=== PATIENT | female | born 1985 | race African-American/Black ===

== ENCOUNTER 2019-02-28 21:26 | Emergency (ER) | payer OTHER ==
[2019-02-28 21:36] VITALS: BP 112/57
[2019-02-28] MEDS ORDERED: MELOXICAM 7.5 MG TABLET PO STA (21:41)
--- NOTE | 2019-02-28 21:44 | ED Physician Documentation ---
PD HPI UPPER EXT INJURY - Stated complaint Stated Complaint: RIGHT WRIST PX - Chief complaint Chief Complaint: Ext Problem - History obtained from History obtained from: Patient - History of Present Illness Location: Right (Without specific injury this left-handed woman developed right wrist pain on the radial side radiating up towards the elbow that is worse with certain motions over the last month.) Review of Systems Constitutional: reports: Reviewed and negative Cardiac: reports: Reviewed and negative Respiratory: reports: Reviewed and negative PD PAST MEDICAL HISTORY - Past Medical History Past Medical History: Yes Cardiovascular: None Respiratory: Asthma Neuro: None Endocrine/Autoimmune: None GI: None REFRIGERATION INSULATOR: None : None HEENT: None Psych: Anxiety, Bipolar disorder Musculoskeletal: None Derm: None - Past Surgical History Past Surgical History: Yes General: Appendectomy /REFRIGERATION INSULATOR: section - Present Medications Home Medications: Ambulatory Orders Medication Instructions Recorded Confirmed Meloxicam [Mobic] 7.5 mg PO BID PRN #20 tablet 02/28/19 - Allergies Allergies/Adverse Reactions: Allergies Allergy/AdvReac Type Severity Reaction Status Date / Time aspirin AdvReac Edema Verified 02/28/19 21:39 ciprofloxacin [From Cipro] AdvReac Rash Verified 02/28/19 21:40 iodine AdvReac Rash Verified 02/28/19 21:39 Sulfa (Sulfonamide AdvReac Rash Verified 02/28/19 21:39 Antibiotics) vancomycin AdvReac Itching Verified 02/28/19 21:40 - Social History Does the pt smoke?: No Smoking Status: Never smoker Does the pt drink ETOH?: No Does the pt have substance abuse?: No - Immunizations Immunizations are current?: Yes - POLST Patient has POLST: No PD ED PE NORMAL - Vitals Vital signs reviewed: Yes - General General: Alert and oriented X 3, No acute distress - Extremities Extremities: Other (The right wrist itself is nontender, the elbow is as well. Flexion extension is relatively painless but has very positive de Quervain's testing.) - Neuro Neuro: Alert and oriented X 3, Normal speech Results - Vitals Vitals: Vital Signs - 24 hr 02/28/19 21:34 Temperature 36.9 C Heart Rate 70 Respiratory 16 Rate Blood Pressure 112/57 L O2 Saturation 100 Oxygen O2 Source Room air PD MEDICAL DECISION MAKING - ED course ED course: This is a 33-year-old woman with de Quervain's tenosynovitis. She is placed in a Velcro thumb spica splint and given a referral for physical therapy and anti- inflammatories. Departure - Departure Disposition: 01 Home, Self Care Clinical Impression: Radial styloid tenosynovitis [de quervain] Condition: Good Record reviewed to determine appropriate education?: Yes Instructions: De Quervain Tenosynovitis Prescriptions: Meloxicam [Mobic] 7.5 mg PO BID PRN #20 tablet PRN Reason: Pain Comments: [place] return for new or worsening symptoms. Also physical therapy as discussed I have written an order for physical therapy 3 times a week for 6 weeks for de Quervain's Tenosynovitis. Forms: Activity restrictions
== END 2019-02-28 22:04 | disposition home or self-care (01) ==
LOC: ED 21:26
DX: M65.4 Radial styloid tenosynovitis [de Quervain] (principal)
CPT/HCPCS: 99282; 99283; A9270

== ENCOUNTER 2019-11-09 07:38 | Outpatient (CLI) | payer OTHER | END 2019-11-09 07:39 | disposition critical access hospital (66) | LOC: EMS 07:38 | PROVIDERS: ATTEND Surgery | DX: R07.9 Chest pain, unspecified (principal) | CPT/HCPCS: A0425; A0429 ==

== ENCOUNTER 2019-11-09 07:57 | Emergency (ER) | payer OTHER ==
[2019-11-09] MEDS ORDERED: LIDOCAINE VISCOUS 2% 15 ML UDC MM STA (08:08)
[2019-11-09] MEDS ORDERED: MAG HYDROX/AL HYDROX/SIMETH 30 ML UDC PO STA (08:08)
--- NOTE | 2019-11-09 08:09 | ED Physician Documentation ---
PD HPI CHEST PAIN - Stated complaint Stated Complaint: CP - Chief complaint Chief Complaint: Cardiac - History obtained from History obtained from: Patient, EMS - History of Present Illness Timing - onset: Today - Additional information Additional information: 34-year-old otherwise healthy woman presents with chest pain that started at 5 AM. It is a sharp pain that actually started almost up near the thyroid and then radiated up and down into the substernal area. It is a severe pain. She is never had it before. Try changing positions and pressing on her chest without relief. She has no history of heart problems. Her father did have a heart attack in his mid 30s. She denies shortness of breath or nausea. No sweats. No radiation to the back. She is on Nexplanon for control. Review of Systems Ten Systems: 10 systems reviewed and negative Constitutional: denies: Fever, Chills Nose: denies: Rhinorrhea / runny nose Throat: denies: Sore throat Cardiac: reports: Chest pain / pressure. denies: Palpitations, Pedal edema, Calf pain PD PAST MEDICAL HISTORY - Past Medical History Cardiovascular: None Respiratory: Asthma Neuro: None Endocrine/Autoimmune: None GI: None CONTINUOUS IMPROVEMENT MANAGER: None : None HEENT: None Psych: Anxiety, Bipolar disorder Musculoskeletal: None Derm: None - Past Surgical History Past Surgical History: Yes General: Appendectomy /CONTINUOUS IMPROVEMENT MANAGER: section - Present Medications Home Medications: Ambulatory Orders Medication Instructions Recorded Confirmed Fluoxetine HCl 30 mg ORAL DAILY PM 11/09/19 11/09/19 Hydrocodone/Acetaminophen 1 - 2 each PO Q6H PRN #7 tablet 11/09/19 [Hydrocodon-Acetaminophen 5-325] Iloperidone [Fanapt] 2 mg ORAL DAILY PM 11/09/19 11/09/19 Propranolol [Inderal] 10 mg PO DAILY PM 11/09/19 11/09/19 Trazodone HCl 50 mg PO QPM #30 tablet 11/09/19 lamoTRIgine [Lamictal] 150 mg PO DAILY PM 11/09/19 11/09/19 - Allergies Allergies/Adverse Reactions: Allergies Allergy/AdvReac Type Severity Reaction Status Date / Time aspirin AdvReac Edema Verified 11/09/19 08:01 ciprofloxacin [From Cipro] AdvReac Rash Verified 11/09/19 08:01 iodine AdvReac Rash Verified 11/09/19 08:01 Sulfa (Sulfonamide AdvReac Rash Verified 11/09/19 08:01 Antibiotics) vancomycin AdvReac Itching Verified 11/09/19 08:01 - Social History Does the pt smoke?: No Smoking Status: Never smoker Does the pt drink ETOH?: No Does the pt have substance abuse?: No - Family History Family history: reports: Non contributory - Immunizations Immunizations are current?: Yes - POLST Patient has POLST: No PD ED PE NORMAL - Vitals Vital signs reviewed: Yes - General General: Alert and oriented X 3, No acute distress - HEENT HEENT: PERRL, EOMI - Neck Neck: Supple, no meningeal sign, No bony TTP - Cardiac Cardiac: RRR, No murmur - Respiratory Respiratory: No respiratory distress, Clear bilaterally - Abdomen Abdomen: Non tender - Back Back: No CVA TTP, No spinal TTP - Derm Derm: Normal color, Warm and dry - Extremities Extremities: No edema, No calf tenderness / cord - Neuro Neuro: Alert and oriented X 3, Normal speech Results - Vitals Vitals: Vital Signs - 24 hr 11/09/19 11/09/19 11/09/19 08:02 08:20 08:49 Temperature 36.6 C Heart Rate 72 73 68 Respiratory 18 22 14 Rate Blood Pressure 114/63 127/79 119/66 O2 Saturation 99 96 96 11/09/19 09:18 Temperature Heart Rate 68 Respiratory 16 Rate Blood Pressure 108/62 O2 Saturation 97 Oxygen O2 Source Room air - EKG (time done) 0801 Rate: Rate (enter#) (74) Rhythm: NSR [place]: Normal Intervals: Normal [place] QRS: Normal Ischemia: Normal ST segments Computer interpretation: Agree with computer - Labs Labs: Laboratory Tests 11/09/19 11/09/19 11/09/19 08:10 08:10 08:10 WBC 7.1 RBC 4.94 Hgb 13.2 Hct 41.0 MCV 83.0 MCH 26.7 L MCHC 32.2 RDW 13.3 Plt Count 304 MPV 9.9 Neut # (Auto) 4.8 Lymph # (Auto) 1.6 [place] # (Auto) 0.5 Eos # (Auto) 0.1 Baso # (Auto) 0.0 Absolute Nucleated RBC 0.00 Nucleated RBC % 0.0 D-Dimer Sodium 138 Potassium 3.9 Chloride 103 Carbon Dioxide 24 Anion Gap 11.0 BUN 15 Creatinine 1.1 H Estimated GFR (MDRD) 69 L Glucose 93 Calcium 8.9 Total Bilirubin 0.5 AST 12 ALT 10 Alkaline Phosphatase 63 Troponin I High Sens < 2.3 L Total Protein 7.3 Albumin 4.3 Globulin 3.0 Albumin/Globulin Ratio 1.4 Lipase 63 H 11/09/19 08:10 WBC RBC Hgb Hct MCV MCH MCHC RDW Plt Count MPV Neut # (Auto) Lymph # (Auto) [place] # (Auto) Eos # (Auto) Baso # (Auto) Absolute Nucleated RBC Nucleated RBC % D-Dimer < 200.0 L Sodium Potassium Chloride Carbon Dioxide Anion Gap BUN Creatinine Estimated GFR (MDRD) Glucose Calcium Total Bilirubin AST ALT Alkaline Phosphatase Troponin I High Sens Total Protein Albumin Globulin Albumin/Globulin Ratio Lipase PD MEDICAL DECISION MAKING - ED course ED course: 34 yo woman with v atypical Chest pain, the description sounds like a GI issue. Heart score 1 (FHx) Feeling much better after pain medications. She discussed her sleep patterns with me, takes about an hour and a half to go to sleep every night, and then several awakenings, usually 3 or 4 in the morning before her alarm goes off. She tried guanfacine for it which was not helpful and gave her headaches. We will trial some trazodone pending follow-up with her psychiatric nurse pr actitioner. Departure - Departure Disposition: 01 Home, Self Care Clinical Impression: Chest pain Qualifiers: Chest pain type: precordial pain Qualified Code(s): R07.2 - Precordial pain Condition: Good Record reviewed to determine appropriate education?: Yes Instructions: ED Chest Pain NonCardiac Prescriptions: Hydrocodone/Acetaminophen [Hydrocodon-Acetaminophen 5-325] 1 - 2 each PO Q6H PRN #7 tablet PRN Reason: pain Trazodone HCl 50 mg PO QPM #30 tablet Comments: As discussed, the cause of your chest pain today is not quite clear, but given your description most likely a gastrointestinal source. Return for new or worsening symptoms. For the sleep we are going to try some trazodone, follow-up with Isabel at in 2 weeks as scheduled and discuss if it is working for refills all or alternatives or dose changes.
[2019-11-09] MEDS ORDERED: HYDROmorphone 1 MG/ML CARPUJECT IVP STA ×2 (08:25→08:52)
[2019-11-09 08:31] LABS: ALBUMIN 4.3 g/dL (3.2-5.5); ALBUMIN/GLOBULIN RATIO 1.4 (1.0-2.2); BILIRUBIN,TOTAL 0.5 mg/dL (0.2-1.0); CALCIUM 8.9 mg/dL (8.5-10.3); CREATININE 1.1 mg/dL (0.4-1.0); TOTAL PROTEIN 7.3 g/dL (6.7-8.2)
--- NOTE | 2019-11-09 08:46 | XRAY Report ---
PROCEDURE: Chest 1 View X-Ray INDICATIONS: chest pain TECHNIQUE: One view of the chest was acquired. COMPARISON: None FINDINGS: Surgical changes and devices: None. Lungs and pleura: No pleural effusions or pneumothorax. Lungs are clear. Mediastinum: Mediastinal contours appear normal. Heart size is normal. Bones and chest wall: No suspicious bony lesions. Overlying soft tissues appear unremarkable. IMPRESSION: No acute cardiopulmonary pathology. Reviewed by: Shay Menchaca MD on 11/09/2019 8:44 AM PDT Approved by: Shay Menchaca MD on 11/09/2019 8:44 AM PDT Station ID: [id number]
[2019-11-09 09:06] LABS: BASOPHILS % (AUTO) 0.6 %; EOSINOPHILS # (AUTO) 0.1 10^3/uL (0.0-0.7); EOSINOPHILS % (AUTO) 1.8 %; HGB - HEMOGLOBIN 13.2 g/dL (12.0-16.0); LYMPHOCYTES # (AUTO) 1.6 10^3/uL (1.5-3.5); LYMPHOCYTES % (AUTO) 22.4 %; MEAN CORPUSCULAR HEMOGLOBIN 26.7 pg (27.0-31.0); MEAN CORPUSCULAR HGB CONC 32.2 g/dL (32.0-36.0); MEAN PLATELET VOLUME 9.9 fL (7.9-10.8); MONOCYTES # (AUTO) 0.5 10^3/uL (0.0-1.0); MONOCYTES % (AUTO) 6.8 %; NEUTROPHILS # (AUTO) 4.8 10^3/uL (1.5-6.6); PLT - PLATELET COUNT 304 10^3/uL (130-450); RED BLOOD COUNT 4.94 10^6/uL (4.20-5.40); RED CELL DISTRIBUTION WIDTH 13.3 % (12.0-15.0); WHITE BLOOD COUNT 7.1 x10^3/uL (4.8-10.8)
[2019-11-09 10:02] VITALS: BP 114/56
== END 2019-11-09 10:15 | disposition home or self-care (01) ==
LOC: EDUNIT# → ED 07:57
DX: R07.2 Precordial pain (principal); Z82.49 Family history of ischemic heart disease and other diseases of the circulatory system; G47.9 Sleep disorder, unspecified
CPT/HCPCS: 36415; 71045; 80053; 83690; 84484; 85025; 85379; 93005; 96374; 99284; A9270; J1170

== ENCOUNTER 2020-02-13 10:40 | Outpatient (CLI) | payer OTHER ==
--- NOTE | 2020-02-13 11:35 | MRI Report ---
PROCEDURE: Brain W/O INDICATIONS: CHRONIC MIGRAINES TECHNIQUE: Noncontrast axial T1 spin echo, axial T2 fast spin echo, sagittal and axial FLAIR, coronal T2 fast sp in echo, axial gradient echo, axial diffusion and ADC through the brain. COMPARISON: None. FINDINGS: Image quality: Excellent. CSF Spaces: Basal cisterns are patent. No extra-axial fluid collections. Ventricles are normal in size and shape. Brain: No intracranial masses or hemorrhage. Gonzalez/white matter interface is normal. Brainstem appe ars normal. Diffusion-weighted images demonstrate no recent ischemia. The major intravascular flow-r elated signal voids are present. Midline structures normal in configuration. Skull and face: Calvarium has normal marrow signal. Orbits appear normal. Sinuses: Sinuses and mastoids are clear. IMPRESSION: Normal MRI of the brain. Reviewed by: Suresh Hardwick MD on 02/13/2020 11:33 AM PDT Approved by: Suresh Hardwick MD on 02/13/2020 11:33 AM PDT Station ID: [id number]
== END 2020-02-13 10:41 | disposition home or self-care (01) ==
LOC: DI 10:40
PROVIDERS: ATTEND Family Medicine
DX: G43.909 Migraine, unspecified, not intractable, without status migrainosus (principal); H57.10 Ocular pain, unspecified eye; H53.8 Other visual disturbances
CPT/HCPCS: 70551

== ENCOUNTER 2021-01-04 14:21 | Emergency (ER) | payer OTHER ==
[2021-01-04 14:31] VITALS: BP 110/74
[2021-01-04] MEDS ORDERED: KETOROLAC 60 MG/2 ML VIAL IM STA (15:02)
[2021-01-04] MEDS ORDERED: CHERRY SYRUP 10 ML UDC PO ONE (15:02)
[2021-01-04] MEDS ORDERED: DEXAMETHASONE 10 MG/ML VIAL PO STA (15:02)
--- NOTE | 2021-01-04 15:04 | ED Physician Documentation ---
PD HPI BACK PAIN - Stated complaint Stated Complaint: BACK PX - Chief complaint Chief Complaint: Back Pain - History obtained from History obtained from: Patient - History of Present Illness Timing - onset: Today Timing - duration: Hours Timing - details: Abrupt onset, Still present Location: Lower Quality: Pain, Spasm, Sharp Associated symptoms: No: Fever, Weakness, Numbness, Incontinent of urine, Unable to urinate, Hematuria, Incontinent of stool Improves with: Rest Worsened by: Movement Contributing factors: Lifting, Twisting Similar symptoms before: Has not had sx before Recently seen: Not recently seen - Additional information Additional information: 35-year-old female who has small children that [place]. The children have developed Covid and the patient is in her home cleaning incessantly and continuously. She and her are immunized and they have not turned positive.This morning the patient awoke with severe pain to her low back with radiation down both legs posteriorly. She denies any numbness or tingling she denies any difficulty with her bowel or bladder. Review of Systems Constitutional: denies: Fever Ears: denies: Ear pain Nose: denies: Congestion Cardiac: denies: Chest pain / pressure Respiratory: denies: Cough GI: denies: Abdominal Pain, Nausea, Vomiting, Diarrhea : denies: Dysuria, Frequency Skin: denies: Rash Musculoskeletal: reports: Back pain. denies: Neck pain, Extremity pain PD PAST MEDICAL HISTORY - Past Medical History Cardiovascular: None Respiratory: Asthma Neuro: None Endocrine/Autoimmune: None GI: None MUNICIPAL SERVICES MANAGER: None : None HEENT: None Psych: Anxiety, Bipolar disorder Musculoskeletal: None Derm: None - Past Surgical History Past Surgical History: Yes General: Appendectomy /MUNICIPAL SERVICES MANAGER: section - Present Medications Home Medications: Ambulatory Orders Medication Instructions Recorded Confirmed Fluoxetine HCl 30 mg ORAL DAILY PM 11/09/19 11/09/19 Hydrocodone/Acetaminophen 1 - 2 each PO Q6H PRN #7 tablet 11/09/19 [Hydrocodon-Acetaminophen 5-325] Iloperidone [Fanapt] 2 mg ORAL DAILY PM 11/09/19 11/09/19 Propranolol [Inderal] 10 mg PO DAILY PM 11/09/19 11/09/19 Trazodone HCl 50 mg PO QPM #30 tablet 11/09/19 lamoTRIgine [Lamictal] 150 mg PO DAILY PM 11/09/19 11/09/19 Cyclobenzaprine [Flexeril] 10 mg PO TID PRN #20 tablet 01/04/21 HYDROcod/ACETAM 5/325 [[place] 5/325] 1 - 2 tablet PO Q6H PRN #14 tablet 01/04/21 - Allergies Allergies/Adverse Reactions: Allergies Allergy/AdvReac Type Severity Reaction Status Date / Time aspirin AdvReac Edema Verified 01/04/21 14:28 ciprofloxacin [From Cipro] AdvReac Rash Verified 01/04/21 14:28 iodine AdvReac Rash Verified 01/04/21 14:28 Sulfa (Sulfonamide AdvReac Rash Verified 01/04/21 14:28 Antibiotics) vancomycin AdvReac Itching Verified 01/04/21 14:28 - Social History Does the pt smoke?: No Smoking Status: Never smoker Does the pt drink ETOH?: No Does the pt have substance abuse?: No - Immunizations Immunizations are current?: Yes - POLST Patient has POLST: No PD ED PE NORMAL - Vitals Vital signs reviewed: Yes (Normal) - General General: Alert and oriented X 3, Well developed/nourished, Other (The patient moves slowly and when she does move she has sudden twinges of pain.) - Neck Neck: Supple, no meningeal sign, No bony TTP - Respiratory Respiratory: No respiratory distress - Back Back: No CVA TTP, No spinal TTP, Other (There is mild point tenderness to the paraspinous muscles of the lower lumbar spine at the lumbar sacral junction.) - Derm Derm: Normal color, Warm and dry, No rash - Extremities Extremities: No deformity, No edema - Neuro Neuro: Alert and oriented X 3, band tumbler 2-12 intact, No motor deficit, No sensory deficit, Normal speech Eye Opening: Spontaneous Motor: Obeys Commands Verbal: Oriented GCS Score: 15 - Psych Psych: Normal mood, Normal affect Results - Vitals Vitals: Vital Signs - 24 hr 01/04/21 14:28 Temperature 36.5 C Heart Rate 66 Respiratory 16 Rate Blood Pressure 110/74 O2 Saturation 100 Oxygen O2 Source Room air PD MEDICAL DECISION MAKING - ED course Complexity details: reviewed old records, considered differential, d/w patient ED course: 35-year-old female with acute lumbar spasm from overuse is administered dexamethasone 10 mg and Toradol 60 mg IM. We will place her on a course of pain medication a muscle relaxant and have her hydrate. Departure - Departure Disposition: 01 Home, Self Care Clinical Impression: Lumbar paraspinal muscle spasm Condition: Stable Instructions: ED Spasm Back No Trauma Follow-Up: RENATA LEZAMA MD [Primary Care Provider] - Prescriptions: Cyclobenzaprine [Flexeril] 10 mg PO TID PRN #20 tablet PRN Reason: Spasms HYDROcod/ACETAM 5/325 [[place] 5/325] 1 - 2 tablet PO Q6H PRN #14 tablet PRN Reason: Pain Comments: Irena, today it looks like your back pain is related to spasm from excessive use of your back muscles without rest. The recommendation is to ice and stretch her back hydrate as much as you possibly can take the pain medication a muscle relaxant as needed and expect your pain to resolve in 2 to 5 days.
== END 2021-01-04 15:35 | disposition home or self-care (01) ==
LOC: ED 14:21
DX: M62.830 Muscle spasm of back (principal); F41.9 Anxiety disorder, unspecified; F31.9 Bipolar disorder, unspecified; Z79.899 Other long term (current) drug therapy
CPT/HCPCS: 96372; 99283; 99284; A9270

== ENCOUNTER 2022-05-11 13:15 | Outpatient (CLI) | payer OTHER ==
--- NOTE | 2022-05-11 14:09 | XRAY Report ---
PROCEDURE: Hand 3 View LT INDICATIONS: L HAND PX TECHNIQUE: 3 views of the hand(s) acquired. COMPARISON: None FINDINGS: Bones: No fractures or dislocations. No suspicious bony lesions. Soft tissues: No suspicious soft tissue calcifications. IMPRESSION: No acute fracture. No osseous lesion. If symptoms and/or clinical suspicion for pathology continue, f urther assessment with repeat plain films, or advanced imaging (e.g., CT, MRI, or bone scan) is recom mended for further assessment. Reviewed by: Michael Slade MD on 05/11/2022 2:07 PM PST Approved by: Michael Slade MD on 05/11/2022 2:07 PM PST Station ID: [id number]
== END 2022-05-11 13:16 | disposition home or self-care (01) ==
LOC: DI.N 13:15
PROVIDERS: ATTEND Registered Nurse
DX: M25.542 Pain in joints of left hand (principal); R30.0 Dysuria
CPT/HCPCS: 87086

== ENCOUNTER 2022-07-18 10:03 | Emergency (ER) | payer OTHER ==
[2022-07-18 10:15] VITALS: BP 135/73
--- NOTE | 2022-07-18 10:28 | ED Physician Documentation ---
PD HPI UPPER EXT INJURY - Stated complaint Stated Complaint: LFT RING FINGER INJURY - Chief complaint Chief Complaint: Trauma Ext - History obtained from History obtained from: Patient - Additonal information Additional information: Patient is a 37-year-old presenting for evaluation of left ring finger pain that started this morning while playing basketball. She reports jamming her finger And started to have pain Which is worse with movements. Reports having an injury to the finger back in April. Denies any prior surgeries to the hand or fingers. Review of Systems Constitutional: denies: Fever Cardiac: denies: Chest pain / pressure Respiratory: denies: Dyspnea GI: denies: Abdominal Pain Musculoskeletal: reports: Extremity pain PD PAST MEDICAL HISTORY - Past Medical History Cardiovascular: None Respiratory: Asthma Neuro: None Endocrine/Autoimmune: None GI: None AIRPORT OPERATIONS CREW MEMBER: None : None HEENT: None Psych: Anxiety, Bipolar disorder Musculoskeletal: None Derm: None - Past Surgical History Past Surgical History: Yes General: Appendectomy /AIRPORT OPERATIONS CREW MEMBER: section - Present Medications Home Medications: Ambulatory Orders Medication Instructions Recorded Confirmed Fluoxetine HCl 30 mg ORAL DAILY PM 11/09/19 11/09/19 Hydrocodone/Acetaminophen 1 - 2 each PO Q6H PRN #7 tablet 11/09/19 [Hydrocodon-Acetaminophen 5-325] Iloperidone [Fanapt] 2 mg ORAL DAILY PM 11/09/19 11/09/19 Propranolol [Inderal] 10 mg PO DAILY PM 11/09/19 11/09/19 Trazodone HCl 50 mg PO QPM #30 tablet 11/09/19 lamoTRIgine [Lamictal] 150 mg PO DAILY PM 11/09/19 11/09/19 Cyclobenzaprine [Flexeril] 10 mg PO TID PRN #20 tablet 01/04/21 HYDROcod/ACETAM 5/325 [[place] 5/325] 1 - 2 tablet PO Q6H PRN #14 tablet 01/04/21 - Allergies Allergies/Adverse Reactions: Allergies Allergy/AdvReac Type Severity Reaction Status Date / Time naproxen Allergy Rash Verified 07/18/22 10:15 aspirin AdvReac Edema Verified 01/04/21 14:28 ciprofloxacin [From Cipro] AdvReac Rash Verified 01/04/21 14:28 iodine AdvReac Rash Verified 01/04/21 14:28 Sulfa (Sulfonamide AdvReac Rash Verified 01/04/21 14:28 Antibiotics) vancomycin AdvReac Itching Verified 01/04/21 14:28 - Social History Does the pt smoke?: No Smoking Status: Never smoker Does the pt drink ETOH?: No Does the pt have substance abuse?: No - Immunizations Immunizations are current?: Yes - POLST Patient has POLST: No PD ED PE NORMAL - General General: Alert and oriented X 3, No acute distress, Well developed/nourished - HEENT HEENT: Atraumatic - Cardiac Cardiac: Strong equal pulses - Respiratory Respiratory: No respiratory distress - Derm Derm: Warm and dry - Extremities Extremities: Other (Tenderness and mild swelling to left fourth finger, normal range of motion at all joints, finger appears to be aligned properly, brisk cap refill, sensation intact; No tenderness elsewhere in the hand or to other digits) Results - Vitals Vitals: Vital Signs - 24 hr 07/18/22 10:12 Temperature 36.2 C L Heart Rate 73 Respiratory 20 Rate Blood Pressure 135/73 H O2 Saturation 100 Oxygen O2 Source Room air PD Medical Decision Making - ED course Complexity details: reviewed results, re-evaluated patient ED course: Patient presenting for evaluation of injury to left ring finger.Normal range of motion with no signs of tendon injury.Neurovascularly intact. X-ray was obtained which I reviewed and is negative for Fracture or dislocation. Patient This into a finger splint and advised on continued Supportive care as well as need for follow-up if symptoms or not improving. Departure - Departure Disposition: 01 Home, Self Care Clinical Impression: Injury of left ring finger Condition: Stable Instructions: ED Sprain Finger Comments: Your x-ray does not show a broken or out of place bone. You could have a finger sprain so we are applying a finger splint for comfort. Please continue with ice, anti-inflammatory such as acetaminophen or ibuprofen and close follow-up with your PCP if your symptoms or not improving. Forms: Activity restrictions Discharge Date/Time: 07/18/22 11:32
--- NOTE | 2022-07-18 10:55 | XRAY Report ---
PROCEDURE: Finger(s) LT INDICATIONS: ring finger injury TECHNIQUE: AP hand, 2 views of the fourth finger(s) acquired. COMPARISON: None FINDINGS: Bones: No fractures or dislocations. No suspicious bony lesions. Soft tissues: No suspicious soft tissue calcifications. IMPRESSION: No evidence acute bony abnormality left fourth digit. Reviewed by: Yoni Jack MD on 07/18/2022 10:53 AM [facility] Approved by: Yoni Jack MD on 07/18/2022 10:53 AM [facility] Station ID: [id number]
== END 2022-07-18 11:32 | disposition home or self-care (01) ==
LOC: ED 10:03
DX: S69.92XA Unspecified injury of left wrist, hand and finger(s), initial encounter (principal); X58.XXXA Exposure to other specified factors, initial encounter; Y93.67 Activity, basketball
CPT/HCPCS: 99283

== ENCOUNTER 2023-04-26 09:01 | Emergency (ER) | payer OTHER ==
--- NOTE | 2023-04-26 11:59 | ED Physician Documentation ---
PD HPI BACK PAIN - Stated complaint Stated Complaint: LOWER BACK PX INJ - Chief complaint Chief Complaint: Trauma Ch/Bk - History obtained from History obtained from: Patient - History of Present Illness Timing - onset: Yesterday Timing - duration: Days (1) Timing - details: Abrupt onset (she was at work and was holdingh/restraining a client and had twisting of the low back. No direct iimpact. Onset pain and had episode of urinary incontinence after and is having pain down goth thighs today. Pain ROM.), Still present Location: Lower Quality: Pain, Spasm Review of Systems Constitutional: denies: Fever, Chills Nose: denies: Rhinorrhea / runny nose, Congestion Throat: denies: Sore throat Respiratory: denies: Cough GI: denies: Abdominal Pain Musculoskeletal: reports: Back pain. denies: Extremity pain Neurologic: denies: Focal weakness, Numbness, Near syncope PD PAST MEDICAL HISTORY - Past Medical History Past Medical History: Yes Cardiovascular: None Respiratory: Asthma Neuro: None Endocrine/Autoimmune: None GI: None STAFF PHYSICIAN: None : None HEENT: None Psych: Anxiety, Bipolar disorder Musculoskeletal: None Derm: None - Past Surgical History Past Surgical History: Yes General: Appendectomy /STAFF PHYSICIAN: section - Present Medications Home Medications: Ambulatory Orders Medication Instructions Recorded Confirmed Propranolol [Inderal] 10 mg PO TID 11/09/19 04/26/23 lamoTRIgine [Lamictal] 150 mg PO DAILY PM 11/09/19 04/26/23 HYDROcod/ACETAM 5/325 [[place] 5/325] 1 ea PO Q6H PRN #15 tablet 04/26/23 [place] Carbonate [[place] 450 mg PO BID 04/26/23 04/26/23 Carbonate ER] Meloxicam [Mobic] 7.5 mg PO BID 10 Days #20 tablet 04/26/23 Methylphenidate HCl 20 mg ORAL BID 04/26/23 04/26/23 Trazodone HCl 50 mg PO QPM PRN 04/26/23 04/26/23 tiZANidine [Zanaflex] 4 mg PO Q8H PRN #25 tablet 04/26/23 - Allergies Allergies/Adverse Reactions: Allergies Allergy/AdvReac Type Severity Reaction Status Date / Time naproxen Allergy Rash Verified 04/26/23 09:14 aspirin AdvReac Edema Verified 04/26/23 09:14 ciprofloxacin [From Cipro] AdvReac Rash Verified 04/26/23 09:14 iodine AdvReac Rash Verified 04/26/23 09:14 Sulfa (Sulfonamide AdvReac Rash Verified 04/26/23 09:14 Antibiotics) vancomycin AdvReac Itching Verified 04/26/23 09:14 - Social History Does the pt smoke?: No Smoking Status: Never smoker Does the pt drink ETOH?: Yes ETOH Use: Wine Does the pt have substance abuse?: No - Immunizations Immunizations are current?: Yes - POLST Patient has POLST: No PD ED PE NORMAL - Vitals Vital signs reviewed: Yes - General General: Alert and oriented X 3, Well developed/nourished, Other (considerable pain low back with any ROM. tearful guarding. ) - Cardiac Cardiac: RRR, No murmur - Respiratory Respiratory: No respiratory distress, Clear bilaterally - Abdomen Abdomen: Soft, Non tender - Back Back: No CVA TTP, Other (tender left paralumbar muscles and some to midline. No noted deformity. ) - Derm Derm: Normal color, Warm and dry - Neuro Neuro: Alert and oriented X 3, No motor deficit, No sensory deficit, Normal speech Results - Vitals Vitals: Oxygen O2 Source Room air - Rads (name of study) lumbar CT Relevant Findings:: Prelim report reviewed (no fractures nor disc abnormalities. ), EMP independent interpretation of test PD Medical Decision Making - ED course Complexity details: reviewed results (no fractures nor acute disc injuries. ), considered differential (had injury yesterday at work, with low back pain, radiating down both legs, and had episode of incontinence. SO concern for acute disc injury/fx. Given the symptoms, I feel imaging CT is appropriate. ), d/w patient Drug Therapy Requiring Monitoring for Toxicity: given the degree of pain, shared decision was for stronger pain relief. Given IV dialudid, toradol and PO robaxin. Repeat dose of DIlaudid, with subsequent adequte pain improvement per pt. No side effects. Departure - Departure Disposition: 01 Home, Self Care Clinical Impression: Low back strain Qualifiers: Encounter type: initial encounter Qualified Code(s): S39.012A - Strain of muscle, fascia and tendon of lower back, initial encounter Condition: Stable Record reviewed to determine appropriate education?: Yes Instructions: ED Sprain Strain Lumbar Prescriptions: Meloxicam [Mobic] 7.5 mg PO BID 10 Days #20 tablet HYDROcod/ACETAM 5/325 [[place] 5/325] 1 ea PO Q6H PRN #15 tablet PRN Reason: Pain tiZANidine [Zanaflex] 4 mg PO Q8H PRN #25 tablet PRN Reason: Spasms Comments: Your CT scan does not show any acute obvious bony nor disc abnormalities in the back. The pain you are having presume is from injury of the ligaments and muscles through the area which can also put pressure on the nerves and give you the radiating pain into the thighs. I printed a copy of the CT report for you. I would treat your back with external/topical treatments such as heat stretching massage and lidocaine. We can also treat with medications of anti-inflammatories (not naproxen) as well as muscle relaxant for stiffness. To that add Tylenol 500 to 650 mg every 4-6 hours if needed for pains. I also wrote for hydrocodone/acetaminophen if needed for worse pains. I would anticipate improvement over the next several days and hopefully resolved by 4 to 5 days. I wrote a work note for the next 3 days. I sent your prescriptions to preferred pharmacy. Follow-up if not improved resonably well over the next 4 to 5 days and resolved in a week or so I am prescribing a short course of narcotic pain medication for you. These are potentially dangerous and addictive medications that should be used carefully. These medications may constipate you. Take an fsjz-ont-quvozjj stool softener such as docusate twice daily with plenty of water while taking these medications. If you go 24 hours without a bowel movement, take xvkt-wpl-vqofzvn MiraLAX, per package instructions. Do not drink or drive while taking these medications. If you received narcotic or sedating medications while in the emergency department do not drive for 24 hours. Store this medication in a safe, secure place and out of reach of children. It is a violation of federal law to give or sell this medication to another person or to use in a manner other than prescribed. The ED will not refill narcotic prescriptions, including prescriptions lost or stolen. You can dispose of unwanted medications at the [facility]'s office or at several pharmacies such as [facility].. Forms: PCP List, Activity restrictions Discharge Date/Time: 12/06/23 15:09
[2023-04-26] MEDS ORDERED: KETOROLAC 15 MG/ML VIAL IVP STA (12:28)
[2023-04-26] MEDS ORDERED: HYDROmorphone 1 MG/ML CARPUJECT IVP STA (12:28)
--- NOTE | 2023-04-26 14:12 | CT Report ---
PROCEDURE: LUMBAR SPINE WO INDICATIONS: acute low back pain from injury yesterday TECHNIQUE: Noncontrast 3 mm thick sections acquired from the T12 level to the sacrum. Sagittal and coronal refo rmats were constructed. For radiation dose reduction, the following was used: automated exposure co ntrol, adjustment of mA and/or kV according to patient size. COMPARISON: None. FINDINGS: Image quality: Excellent. Bones: There is normal bony alignment. No acute vertebral body compression fractures. No suspiciou s lytic or blastic bony lesions. Central spinal caliber is of normal overall caliber. No pars defec ts. T12-L1: Normal in appearance. L1-L2: Normal in appearance. L2-L3: Normal in appearance. L3-L4: Normal in appearance. L4-L5: Normal in appearance. L5-S1: Normal in appearance. Soft tissues: No retroperitoneal masses or hematomas. Visualized aorta is normal in caliber. IMPRESSION: Unremarkable lumbar spine CT. No acute bony abnormality. No canal stenosis or foraminal stenosis iden tified. Reviewed by: Yoni Jack MD on 04/26/2023 2:11 PM PST Approved by: Yoni Jack MD on 04/26/2023 2:11 PM PST Station ID: [id number]
[2023-04-26] MEDS ORDERED: methocarbamoL 500 MG TABLET PO STA (14:22)
[2023-04-26] MEDS ORDERED: HYDROmorphone 0.5 MG/0.5 ML SYRINGE IVP STA (14:22)
[2023-04-26 14:38] VITALS: BP 102/66; O2SAT 99
== END 2023-04-26 15:09 | disposition home or self-care (01) ==
LOC: ED 09:01
DX: S39.012A Strain of muscle, fascia and tendon of lower back, initial encounter (principal); X50.1XXA Overexertion from prolonged static or awkward postures, initial encounter; Y93.89 Activity, other specified; Y99.0 Civilian activity done for income or pay; Z79.899 Other long term (current) drug therapy
CPT/HCPCS: 1040M; 72131; 96374; 96375; 96376; 99283; 99284; A9270; J1170

== ENCOUNTER 2023-05-07 07:01 | Emergency (ER) | payer OTHER ==
--- NOTE | 2023-05-07 07:23 | ED Physician Documentation ---
PD HPI URI - Stated complaint Stated Complaint: R THROAT PX - Chief complaint Chief Complaint: Heent - History obtained from History obtained from: Patient - History of Present Illness Timing - onset: How many days ago (2) Timing duration: Days (2) Timing details: Abrupt onset, Still present Associated symptoms: Sore throat (pain and swelling underneath right side of tongue with pain in submandibular area. Feeling some bad taste drainage. Feverish. Has tried massaging area front to back, using antiseptic, taking ibupforen.), Swollen nodes. No: Fever, Nasal congestion, Dry cough Contributing factors: No: Sick contact Review of Systems Constitutional: denies: Fever, Chills Nose: denies: Rhinorrhea / runny nose, Congestion Throat: reports: Oral lesions / sores (pain under right side of tongue with swelling and redness. Swollen neck right anterior.). denies: Sore throat GI: denies: Nausea, Vomiting Skin: denies: Rash, Lesions PD PAST MEDICAL HISTORY - Past Medical History Past Medical History: Yes Cardiovascular: None Respiratory: Asthma Neuro: None Endocrine/Autoimmune: None GI: None SECOND MATE: None : None HEENT: None Psych: Anxiety, Bipolar disorder Musculoskeletal: None Derm: None - Past Surgical History Past Surgical History: Yes General: Appendectomy /SECOND MATE: section - Present Medications Home Medications: Ambulatory Orders Medication Instructions Recorded Confirmed Propranolol [Inderal] 10 mg PO TID 11/09/19 05/07/23 lamoTRIgine [Lamictal] 150 mg PO DAILY PM 11/09/19 05/07/23 HYDROcod/ACETAM 5/325 [[place] 5/325] 1 ea PO Q6H PRN #15 tablet 04/26/23 05/07/23 [place] Carbonate [[place] 450 mg PO BID 04/26/23 05/07/23 Carbonate ER] Meloxicam [Mobic] 7.5 mg PO BID 10 Days #20 tablet 04/26/23 05/07/23 Methylphenidate HCl 20 mg ORAL BID 04/26/23 05/07/23 Trazodone HCl 50 mg PO QPM PRN 04/26/23 05/07/23 Amox/Clav 875/125 [Augmentin] 1 each PO Q12H #14 tablet 05/07/23 HYDROcod/ACETAM 5/325 [[place] 5/325] 1 ea PO Q6H PRN #12 tablet 05/07/23 Ibuprofen [Motrin] 600 mg PO TID PRN #15 tab 05/07/23 - Allergies Allergies/Adverse Reactions: Allergies Allergy/AdvReac Type Severity Reaction Status Date / Time naproxen Allergy Rash Verified 05/07/23 07:15 aspirin AdvReac Edema Verified 05/07/23 07:15 ciprofloxacin [From Cipro] AdvReac Rash Verified 05/07/23 07:15 iodine AdvReac Rash Verified 05/07/23 07:15 Sulfa (Sulfonamide AdvReac Rash Verified 05/07/23 07:15 Antibiotics) vancomycin AdvReac Itching Verified 05/07/23 07:15 - Social History Does the pt smoke?: No Smoking Status: Never smoker Does the pt drink ETOH?: Yes Does the pt have substance abuse?: No - Immunizations Immunizations are current?: Yes - POLST Patient has POLST: No PD ED PE NORMAL - Vitals Vital signs reviewed: Yes - General General: Alert and oriented X 3, Well developed/nourished, Other (appears in pain due to right sublingual area. ) - HEENT HEENT: Moist mucous membranes, Dentition benign. No: Pharynx benign (tenderness, redness, swelling without firm lump under right side of tongue. ) - Neck Neck: Supple, no meningeal sign - Cardiac Cardiac: RRR, No murmur - Respiratory Respiratory: No respiratory distress, Clear bilaterally Results - Vitals Vitals: Vital Signs - 24 hr 05/07/23 07:15 Temperature 36.3 C L Heart Rate 58 L Respiratory 16 Rate Blood Pressure 129/74 O2 Saturation 100 Oxygen O2 Source Room air PD Medical Decision Making - ED course Complexity details: considered differential (definite redness, tender, inflamed sublingual gland and duct. Not palpable stone per se. Will treat with abx/nasids and pain meds. f/u ENT. ), d/w patient Departure - Departure Disposition: 01 Home, Self Care Clinical Impression: Acute bacterial sialadenitis, Acute oral pain Condition: Stable Follow-Up: [facility] [place] [Provider Group] [facility] [Provider Group] Prescriptions: Amox/Clav 875/125 [Augmentin] 1 each PO Q12H #14 tablet Ibuprofen [Motrin] 600 mg PO TID PRN #15 tab PRN Reason: Pain HYDROcod/ACETAM 5/325 [[place] 5/325] 1 ea PO Q6H PRN #12 tablet PRN Reason: Pain Comments: Continue with good hydration and massaging gently under the tongue from back to forward as tolerated. Commonly the pain swelling and infection of this starts with some clogging of the duct. At this point though an infection of it seems a very prominent part it would treat it with antibiotics of Augmentin twice daily as well as ibuprofen anti- inflammatory. To that add Tylenol 500 to 650 mg 4 times daily for pain or hydrocodone/acetaminophen. Your recent treatment for back pain with pain medicine and muscle relaxant could have caused some clogging. I would expect the dry mouth you had from those medicines was more from the muscle relaxant tizanidine and as such I think pain medicine now for this hurting is reasonable. I sent a prescription to [facility] pharmacy. I have included the phone number for [facility] nose [facility] group in [place]. Call them Monday morning for follow-up appointment to this. Getting the infection down initially is the first step but they could evaluate for ideas of stone blockage or if the duct needs dilating etc. I am prescribing a short course of narcotic pain medication for you. These are potentially dangerous and addictive medications that should be used carefully. These medications may constipate you. Take an dxnq-niw-ichlzdf stool softener such as docusate twice daily with plenty of water while taking these medications. If you go 24 hours without a bowel movement, take fzkb-yam-xlyjrdn MiraLAX, per package instructions. Do not drink or drive while taking these medications. If you received narcotic or sedating medications while in the emergency department do not drive for 24 hours. Store this medication in a safe, secure place and out of reach of children. It is a violation of federal law to give or sell this medication to another person or to use in a manner other than prescribed. The ED will not refill narcotic prescriptions, including prescriptions lost or stolen. You can dispose of unwanted medications at the [facility]'s office or at several pharmacies such as [facility]. Forms: PCP List Discharge Date/Time: 05/07/23 08:36
[2023-05-07 07:24] VITALS: BP 129/74; O2SAT 100
[2023-05-07] MEDS ORDERED: IBUPROFEN 600 MG TABLET PO STA (08:07)
[2023-05-07] MEDS ORDERED: AMOX/CLAV 875 MG/125 MG TABLET PO STA (08:07)
[2023-05-07] MEDS ORDERED: ACETAMINOPHEN 325 MG TABLET PO STA (08:07)
== END 2023-05-07 08:36 | disposition home or self-care (01) ==
LOC: ED 07:01
DX: K11.21 Acute sialoadenitis (principal)
CPT/HCPCS: 99282; 99284; A9270

== ENCOUNTER 2023-06-01 12:16 | Emergency (ER) | payer OTHER ==
[2023-06-01 12:39] VITALS: O2SAT 100
--- NOTE | 2023-06-01 12:41 | ED Physician Documentation ---
PD HPI FEMALE - Stated complaint Stated Complaint: - Chief complaint Chief Complaint: Abd Pain - History obtained from History obtained from: Patient - Additional information Additional information: 30-year-old female presents emergency department today for complaints of dysuria, vaginal itching, flank pain, urinary urgency with incontinence. Patient originally presented to the emergency department about a month ago for back injury she was started on a pain medication that caused her to have a very dry mouth which she states led to a clogged salivary gland. She was started on Augmentin poorly tolerated this antibiotic she said she experienced immediate nausea vomiting after each administration but she does feel although she was not able to complete the full course of Augmentin that her salivary gland has now overall self resolved. Unfortunately over the last 2 weeks she has been having vaginal itching she said she has tried to keep that area really clean and dry hoping that it would go away on its own, 3 to 4 days ago she started to experience dysuria, lower abdominal pain/cramping sensation, she attempted to treat at home with cranberry juice and Azo's with little to no relief today had an episode of incontinence at work and now has come to the emergency department for further evaluation. She started to experience bilateral flank pain which she says feels different than her lower back pain that she is currently experiencing from a work injury, no fevers or chills, urinary urgency, abdominal cramping, dysuria, incontinence. She says she is sexually active with 1 partner and has no history of STIs and no concerns of STIs and would not like to be STI tested here in the ER PD PAST MEDICAL HISTORY - Past Medical History Past Medical History: Yes Cardiovascular: None Respiratory: Asthma Neuro: None Endocrine/Autoimmune: None GI: None CLAIMS SERVICE REPRESENTATIVE: None : None HEENT: None Psych: Anxiety, Bipolar disorder Musculoskeletal: None Derm: None - Past Surgical History Past Surgical History: Yes General: Appendectomy /CLAIMS SERVICE REPRESENTATIVE: section - Present Medications Home Medications: Ambulatory Orders Medication Instructions Recorded Confirmed Propranolol [Inderal] 10 mg PO TID 11/09/19 06/01/23 lamoTRIgine [Lamictal] 150 mg PO DAILY PM 11/09/19 06/01/23 [place] Carbonate [[place] 450 mg PO BID 04/26/23 06/01/23 Carbonate ER] Methylphenidate HCl 20 mg ORAL BID 04/26/23 06/01/23 Trazodone HCl 50 mg PO QPM PRN 12/06/23 01/11/24 Ibuprofen [Motrin] 600 mg PO TID PRN #15 tab 05/07/23 06/01/23 Fluvoxamine Maleate 25 mg PO DAILY 06/01/23 06/01/23 metroNIDAZOLE [Flagyl] 500 mg PO BID 7 Days #14 tablet 06/01/23 - Allergies Allergies/Adverse Reactions: Allergies Allergy/AdvReac Type Severity Reaction Status Date / Time naproxen Allergy Rash Verified 05/07/23 07:15 aspirin AdvReac Edema Verified 05/07/23 07:15 ciprofloxacin [From Cipro] AdvReac Rash Verified 05/07/23 07:15 iodine AdvReac Rash Verified 05/07/23 07:15 Sulfa (Sulfonamide AdvReac Rash Verified 05/07/23 07:15 Antibiotics) vancomycin AdvReac Itching Verified 05/07/23 07:15 - Social History Does the pt smoke?: No Smoking Status: Never smoker Does the pt drink ETOH?: Yes Does the pt have substance abuse?: No - Immunizations Immunizations are current?: Yes - POLST Patient has POLST: No PD ED PE NORMAL - Vitals Vital signs reviewed: Yes - General General: Alert and oriented X 3, Well developed/nourished, Other - HEENT HEENT: Atraumatic - Abdomen Abdomen: Normal bowel sounds, Soft, Other (bilateral CVA tenderness, generalized abd tenderness but more tender in the pelvic region, not gaurding) - Female Female : Deferred, Residential Manager present (No foreign body, no obvious trauma, vaginal discharge appears thick and lara/brown.) Results - Vitals Vitals: Vital Signs - 24 hr 06/01/23 06/01/23 12:29 15:36 Temperature 36.7 C Heart Rate 63 67 Respiratory 16 18 Rate Blood Pressure 109/66 119/65 O2 Saturation 100 100 Oxygen O2 Source Room air - Labs Labs: Microbiology 06/01/23 13:56 Wet Prep - Final Genital - Vaginal Laboratory Tests 06/01/23 06/01/23 06/01/23 12:48 12:48 14:10 Urine Color LT. YELLOW LT. YELLOW Urine Clarity HAZY CLEAR Urine pH 7.0 7.0 Ur Specific [place] 1.010 1.010 Urine Protein NEGATIVE NEGATIVE Urine Glucose (UA) NEGATIVE NEGATIVE Urine Ketones NEGATIVE NEGATIVE Urine Occult Blood SMALL H TRACE-INTA Urine Nitrite NEGATIVE NEGATIVE Urine Bilirubin NEGATIVE NEGATIVE Urine Urobilinogen 0.2 (NORMAL) 0.2 (NORMAL) Ur Leukocyte Esterase SMALL H NEGATIVE Urine RBC 0-5 Urine WBC >25 H Ur Squamous Epith Cells MOD Squamous H Urine Bacteria Few Ur Microscopic Review NOT INDICATED Urine Culture Comments NOT INDICATED NOT INDICATED Urine HCG, Qual NEGATIVE - Rads (name of study) pelvic US Relevant Findings:: Final report received, EMP independent interpretation of test (no free fluid, ovaries Visualized without any abnormalities.) PD Medical Decision Making - ED course ED course: 38-year-old female here to the emergency department for vaginal itching, urinary urgency, and CVA tenderness. Patient denies history of UTIs and no recent urinalysis from myself to evaluate. Initial urinalysis was contaminated with quite a few epithelial cells a repeat UA was done and patient did not have leukocytes, nitrites, making me less suspicious of this being a UTI. A wet mount was complete and it was negative for yeast but given patient signs and symptoms she was experiencing we went ahead and give her a one-time dose of oral fluconazole here in the emergency department after the patient was on her way out we found her to have positive clue cells so we will go ahead and treat her for bacterial vaginosis RN updated the patient patient had no further questions. A prescription of Flagyl was sent to patient's preferred pharmacy for her bacterial vaginosis she was informed to take this twice a day I called the patient to confirm she understands the BV and antibiotic regimen and she was grateful for the call understands where to pick up operator meds and no further question. Departure - Departure Disposition: 01 Home, Self Care Clinical Impression: Vulvovaginal candidiasis, Bacterial vaginosis Condition: Good Instructions: ED Vaginal Infec Fungal Bhakti Prescriptions: metroNIDAZOLE [Flagyl] 500 mg PO BID 7 Days #14 tablet Comments: Thank you for trusting us with your care we have completed 2 urinalysis and neither of those are showing any sort of signs or symptoms of infection. For this I do not believe that antibiotics are warranted at this time. I think we should treat your yeast infection. We have given you a one-time oral dose of flucanazole here in the emergency department as we discussed you can buy rfcv-nkr-rfqjomi medications to do a vaginal suppository at any pharmacy if you are still having yeast infection symptoms in 3 days. We also found you to have an infection and bacterial vaginosis. You will take an antibiotic called metronidazole also known as Flagyl twice a day for the next 7 days I have sent this to your preferred pharmacy [facility] that you can pick up operator and start taking today. If you start to develop any fevers or chills, worsening burning with urination or abdominal pain please come back to the emergency department for reevaluation. I hope you feel better soon with this yeast infection being treated. Forms: PCP List Discharge Date/Time: 06/01/23 15:36
[2023-06-01 13:01] LABS: BILIRUBIN,URINE NEGATIVE (NEGATIVE); GLUCOSE, URINE (UA) NEGATIVE (NEGATIVE); KETONES,URINE (UA) NEGATIVE (NEGATIVE); LEUKOCYTE ESTERASE, URINE SMALL (NEGATIVE); NITRITE,URINE NEGATIVE (NEGATIVE); OCCULT BLOOD,URINE SMALL (NEGATIVE); PROTEIN,URINE NEGATIVE (NEGATIVE); UROBILINOGEN,URINE 0.2 (NORMAL) E.U./dL (NORMAL)
[2023-06-01 13:06] LABS: CLARITY,URINE HAZY (CLEAR)
[2023-06-01 13:12] LABS: HCG UR QUAL NEGATIVE
[2023-06-01 13:17] LABS: RBC,URINE 0-5 /HPF (0-5); WBC,URINE >25 /HPF (0-5)
[2023-06-01 13:18] LABS: BACTERIA,URINE Few /HPF (None Seen); SQUAMOUS EPITHELIAL CELL,UR MOD Squamous (<= Few)
[2023-06-01 14:20] LABS: BILIRUBIN,URINE NEGATIVE (NEGATIVE); GLUCOSE, URINE (UA) NEGATIVE (NEGATIVE); KETONES,URINE (UA) NEGATIVE (NEGATIVE); LEUKOCYTE ESTERASE, URINE NEGATIVE (NEGATIVE); NITRITE,URINE NEGATIVE (NEGATIVE); OCCULT BLOOD,URINE TRACE-INTA (NEGATIVE); PROTEIN,URINE NEGATIVE (NEGATIVE); UROBILINOGEN,URINE 0.2 (NORMAL) E.U./dL (NORMAL)
[2023-06-01 14:23] LABS: CLARITY,URINE CLEAR (CLEAR)
--- NOTE | 2023-06-01 14:53 | Ultrasound Report ---
PROCEDURE: Pelvic Complete INDICATIONS: pelvic pain TECHNIQUE: Real-time transabdominal scanning was performed of the pelvic organs, with image documentation. COMPARISON: None FINDINGS: Uterus: Uterus is anteverted and normal in size at 7.6 x 2.9 x 4.1 cm. The myometrium is homogeneou s. The endometrium measures 23 mm in combined thickness. Possible arcuate uterus configuration Ovaries: The right ovary measures 3.7 x 2.4 x 2.7 cm, with a calculated ovarian volume of 12.3 cc. The left ovary measures 4.4 x 2.4 x 2.7 cm, with a calculated ovarian volume of 15.2 cc. The ovaries have a normal sonographic appearance. Less than 12 follicles can be seen in each ovary. No adnexal masses are seen. No cystic lesions measuring greater than 3 cm. Other: No free pelvic fluid. IMPRESSION: No acute process. Reviewed by: Michael Slade MD on 06/01/2023 2:51 PM PST Approved by: Michael Slade MD on 06/01/2023 2:51 PM PST Station ID: [id number]
[2023-06-01] MEDS: FLUCONAZOLE 100 MG TABLET PO STA (15:25)
[2023-06-01 15:41] VITALS: BP 119/65
== END 2023-06-01 15:36 | disposition home or self-care (01) ==
LOC: ED 12:16
DX: B37.31 Acute candidiasis of vulva and vagina (principal); N76.0 Acute vaginitis
CPT/HCPCS: 76856; 81001; 81003; 81025; 87210; 99284; A9270; 87086

== ENCOUNTER 2023-07-12 09:08 | Outpatient (CLI) | payer OTHER | END 2023-07-12 09:09 | disposition short-term general hospital (02) | LOC: EMS 09:08 | DX: H53.8 Other visual disturbances (principal) | CPT/HCPCS: A0425; A0429 ==

== ENCOUNTER 2024-01-23 21:42 | Outpatient (CLI) | payer OTHER ==
--- NOTE | 2024-01-24 13:18 | Ultrasound Report ---
PROCEDURE: Abdomen Limited INDICATIONS: HERNIA TECHNIQUE: Real-time focused scanning was performed of the mid abdomen to evaluate for hernia, with image docume ntation. COMPARISONS: None. FINDINGS: No hernia is identified within the area of concern in the mid anterior abdominal wall. IMPRESSION: No hernia is identified within the area of concern. Reviewed by: Jimmy Weems MD on 01/24/2024 1:17 PM PDT Approved by: Jimmy Weems MD on 01/24/2024 1:17 PM PDT Station ID: [id number]
== END 2024-01-23 21:43 | disposition home or self-care (01) ==
LOC: DI 21:42
PROVIDERS: ATTEND Family Medicine
DX: K46.9 Unspecified abdominal hernia without obstruction or gangrene (principal)